=== PATIENT | female | born 1990 | race Hispanic/Latino ===

== ENCOUNTER 2020-12-30 03:06 | Emergency (ER) | payer MEDICAID ==
[2012-01-20 08:08] VITALS: BP 110/74
--- OUTSIDE RECORDS SUMMARY | 2020-12-30 03:10 | XMS REPORT | Continuity of Care Document ---
:1990 Author Organization [facility] t Address [address] [place] [address] Care Team Providers Name Role Phone Lilliam PEDRAZA M Primary Care Physician Lilliam PEDRAZA M Attending Clinician Payers Payer Name Policy Type Policy Effective Date Expiration Date Sour ce Number [facility] - [id number] 2019 Unive rsity of MANAGED 00:00:00 [place] [facility] [place]ICA[place] [facility] HEALTHCARE [id number]/ 08/2019-[address], [place] Problems Condition Condition Condition Status Onset Resolution Last Treating Co mments Source Name Details Category Date Date Treatment Clinician Date Low back Low back Disease Active Unive rs pain at pain at 7-02 ity of multiple multiple 00:00: [address] Allergies, Adverse Reactions, Alerts Allergy Allergy Status Severity Reaction(s) Onset Inactive Treating Comm ents Source Name Type Date Date Clinician No Known DA Active U 2018-08 [facility] Allergie 2-10 Clear s 00:00: [address] No Known DA Active U 2014-08 [facility] Allergie 0-06 Clear s 00:00: [place] [facility] Social History Social Habit Start Date Stop Date Quantity Comments Source Exposure to Not sure University of SARS-CoV-2 [facility] (event) Branch Tobacco use and 2020-12-11 2020-12-11 Never used Universit y of exposure 00:00:00 00:00:[address] [facility] Alcohol intake 2020-12-11 2020-12-11 Current drinker Unive rsity of 00:00:00 00:00:00 of alcohol [facility] (finding) Tat[place] Sex Assigned At [birth year] Universit y of 00:00:00 00:00:[address] [facility] Smoking Status Start Date Stop Date Source Former smoker 2020-12-11 00:00:00 2020-12-11 00:00:00 [facility] Medications Ordered Filled Start Stop Current Ordering Indication Dosage Frequency Signature Comments Components Source Medication Medication Date Date Medication? Clinician (SIG) Name Name SERTraline 2020- No 100mg Take 100 U nivers 100 mg 5-06 05-06 mg by ity of tablet 15:51: 00:00 mouth [place] 25 :00 daily. Medical Branch SERTraline 2020- No 100mg Take 100 U nivers 100 mg 5-06 05-06 mg by ity of tablet 15:51: 00:00 mouth [place] 25 :00 daily. [facility] Branch Immunizations Ordered Filled Immunization Date Status Comments [facility] e Immunization Name Name TDAP (ADACEL) 2019-09-25 Completed University of VACCINE 00:00:[address] [facility] TDAP (ADACEL) 2019-09-25 Completed University of VACCINE 00:00:[address] [facility] Vital Signs Vital Name Observation Time Observation Value Comments Source Systolic blood 2020-12-11 15:46:00 130 mm[Hg] Univer sity of pressure [facility] Diastolic blood 2020-12-11 15:46:00 87 mm[Hg] Unive rsity of pressure [facility] Heart rate 2020-12-11 15:46:00 77 /min [facility] Body temperature 2020-12-11 15:46:00 37.17 [facility] Respiratory rate 2020-12-11 15:46:00 18 /min [facility] Body height 2020-12-11 15:46:00 172.7 cm Universi ty of [facility] Body weight 2020-12-11 15:46:00 84.596 kg Universi ty [facility] BMI 2020-12-11 15:46:00 28.36 kg/m2 Universi ty [facility] Systolic blood 2020-12-11 15:46:00 130 mm[Hg] Univer sity of pressure [facility] Diastolic blood 2020-12-11 15:46:00 87 mm[Hg] Unive rsity of [facility] Heart rate 2020-12-11 15:46:00 77 /min Universi ty [facility] Body temperature 2020-12-11 15:46:00 37.17 [place]ta [facility] Respiratory rate 2020-12-11 15:46:00 18 /min [facility] Body height 2020-12-11 15:46:00 172.7 cm Universi ty [facility] Body weight 2020-12-11 15:46:00 84.596 kg Universi ty [facility] BMI 2020-12-11 15:46:00 28.36 kg/m2 [facility] Procedures This patient has no known procedures. Plan of Care Planned Activity Planned Date Details Comments Source Future Scheduled 2029-09-25 DTaP,Tdap,and Td Univers ity [facility] Test 00:00:00 Vaccines (2 - Td) Medical Br anch [code = DTaP,Tdap,and Td Vaccines (2 - Td)] Future Scheduled 2029-09-25 DTaP,Tdap,and Td Univers ity [facility] Test 00:00:00 Vaccines (2 - Td) Medical Br anch [code = DTaP,Tdap,and Td Vaccines (2 - Td)] Future Scheduled 2023-11-19 Screening for [facility] Test 00:00:00 malignant neoplasm Medical [facility] ranch of cervix (procedure) [code = [id number]] Future Scheduled 2023-11-19 Screening for [facility] Test 00:00:00 malignant neoplasm Medical B ranch of cervix (procedure) [code = [id number]] Future Scheduled 2021-12-11 Depression screening [facility] Test 00:00:00 (procedure) [code = Medical Branch [id number]] Future Scheduled 2021-12-11 Depression screening [facility] Test 00:00:00 (procedure) [code = Medical Branch [id number]] Future Scheduled 2021-04-08 INFLUENZA VACCINE [facility] Test 00:00:00 (Season Ended) [code Medical Branch = INFLUENZA VACCINE (Season Ended)] Future Scheduled 2021-04-08 INFLUENZA VACCINE [facility] Test 00:00:00 (Season Ended) [code Medical Branch = INFLUENZA VACCINE (Season Ended)] Future Scheduled 2007 Hepatitis C [facility] Test 00:00:00 screening Medical Branch (procedure) [code = [id number]] Future Scheduled 2007 Hepatitis C [facility] Test 00:00:00 screening Medical Branch (procedure) [code = [id number]] Future Scheduled 2005 SARS-CoV-2 [facility] Test 00:00:00 (COVID-19) Vaccine Medical B ranch (1) [code = SARS-CoV-2 (COVID-19) Vaccine (1)] Future Scheduled 2005 SARS-CoV-2 [facility] Test 00:00:00 (COVID-19) Vaccine Medical B ranch (1) [code = SARS-CoV-2 (COVID-19) Vaccine (1)] Encounters Start End Encounter Admission Attending Care Care Encounter Source Date/Time Date/Time Type Type Clinicians Facility Department ID 2020-12-11 2020-12-11 Office Lilliam Tavares [id number] 10:40:09 10:55:09 Visit [facility] [id number] M s and [id number] Adult [id number] Primary [facility] 2019-09-30 2019-09-30 Emergency E MHSE [id number] MH 00:53:00 00:53:00 [facility] Results Test Description Test Time Test Comments Results Result Comments Source RAPID PLASMA REAGIN 2019-12-07 11:45:00 Test Item Value Reference Range Interpretation Comme nts RAPID PLASMA REAGIN (test code = RPR) NONREACTIVE NONREACTIVE AG HEPATITIS B [id number] 11:45:00 Test Item Value Reference Range Interpretation Comments AG HEPATITIS B SURFACE NON REACTIVE INDEX NonReactive (test code = HBSAG) AB HIV 1 [id number] 11:45:00 Test Item Value Reference Range Interpretation Comments AB HIV 1 2 (test code = NONREACTIVE INDEX NONREACTIVE [id number]) HGB [id number] 07:43:00 Test Item Value Reference Range Interpretation Comments HEMOGLOBIN (test code = HGB) 9.6 g/dL 11.0-15.0 L HEMATOCRIT (test code = HCT) 30.5 % 33.0-45.0 L RAPID PLASMA [id number] 21:05:00 Test Item Value Reference Range Interpretation Comments RAPID PLASMA REAGIN (test code = RPR) NONREACTIVE AG HEPATITIS B [id number] 21:05:00 Test Item Value Reference Range Interpretation Comments AG HEPATITIS B SURFACE NON REACTIVE INDEX NonReactive (test code = HBSAG) AB HIV 1 21:05:00 Test Item Value Reference Range Interpretation Comments AB HIV 1 2 (test code = NONREACTIVE INDEX NONREACTIVE [id number]) DRUGS OF ABUSE SCREEN [id number] 18:47:00 Test Item Value Reference Range Interpretation Comments URN COCAINE (test code NEGATIVE NEGATIVE = COCAURN) URN CANNABINOIDS (test NEGATIVE NEGATIVE code = CANNABURN) URN AMPHETAMINE (test NEGATIVE NEGATIVE code = AMPHETURN) URN BARBITURATE (test NEGATIVE NEGATIVE code = BARBITURN) URN BENZODIAZEPINE NEGATIVE NEGATIVE Cut-off v alue:200 (test code = BENZOURN) ng/mL URN OPIATES (test code NEGATIVE NEGATIVE Cut-o ff value:2000 = OPIATURN) ng/mL URN PHENCYCLIDINE (PCP) NEGATIVE NEGATIVE Cuto ffs:Barbiturates (test code = PHENCURN) 200 ng/mLBenzodiaze pines 200 ng/ mLTHC Cannabinoids 50 ng/mLOpiates(Mo rphine) 2000 ng/mLAmphetamin e 1000 ng/mLCocaine 300 ng/ mLPCP phencyclidine 25 ng/mL Unconf irmed screening resul ts shouldnot be us ed for non-medical pur poses. CBC W/AUTO [id number] 18:28:00 Test Item Value Reference Range Interpretation Comments WHITE BLOOD CELL (test code = 10.56 x10 3/uL 4.5-11.0 N WBC) RED BLOOD CELL (test code = 3.83 x10 6/uL 3.54-5.02 N RBC) HEMOGLOBIN (test code = HGB) 11.3 g/dL 11.0-15.0 N HEMATOCRIT (test code = HCT) 35.5 % 33.0-45.0 N MEAN CELL VOLUME (test code = 92.7 fL 81.0-99.0 N MCV) MEAN CELL HGB (test code = 29.5 pg 27.0-33.0 N MCH) MEAN CELL HGB CONCETRATION 31.8 g/dL 33.0-37.0 L (test code = MCHC) RED CELL DISTRIBUTION WIDTH CV 12.6 % 11.5-14.5 N (test code = RDW) RED CELL DISTRIBUTION WIDTH SD 42.8 fL 37.0-54.0 N (test code = RDW-SD) PLATELET COUNT (test code = 265 x10 3/uL 150-400 N PLT) MEAN PLATELET VOLUME (test 11.0 fL 7.0-9.0 H code = MPV) NEUTROPHIL % (test code = NT%) 76.0 % 56.0-77.0 N IMMATURE GRANULOCYTE % (test 0.3 % 0.0-2.0 N code = IG%) LYMPHOCYTE % (test code = LY%) 16.7 % 14.0-32.0 N MONOCYTE % (test code = MO%) 6.4 % 4.8-9.0 N EOSINOPHIL % (test code = EO%) 0.3 % 0.3-3.7 N BASOPHIL % (test code = BA%) 0.3 % 0.0-2.0 N NUCLEATED RBC % (test code = 0.0 % 0-0 N NRBC%) NEUTROPHIL # (test code = NT#) 8.03 x10 3/uL 2.0-7.6 H IMMATURE GRANULOCYTE # (test 0.03 x10 3/uL 0.00-0.03 N code = IG#) LYMPHOCYTE # (test code = LY#) 1.76 x10 3/uL 1.0-3.8 N MONOCYTE # (test code = MO#) 0.68 x10 3/uL 0.1-0.8 N EOSINOPHIL # (test code = EO#) 0.03 x10 3/uL 0.0-0.2 N BASOPHIL # (test code = BA#) 0.03 x10 3/uL 0.0-0.2 N NUCLEATED RBC # (test code = 0.00 x10 3/uL 0.0-0.1 N NRBC#) MANUAL DIFF REQUIRED (test NO code = MDIFF) CHEMISTRY 8 [id number] 07:00:00 Test Item Value Reference Range Interpretation Comments ISTAT-SODIUM (test code = NAP) MMOL/L 134-147 ISTAT-POTASSIUM (test code = KP) MMOL/L 3.4-5.0 ISTAT-CHLORIDE (test code = CLP) MMOL/L 100-108 ISTAT CARBON DIOXIDE (test code = mmol/L 21-33 N ISTAT-CO2) ISTAT CALCIUM IONIZED (test code = MG/DL 1.12-1.32 ISTAT-REDDY) ISTAT-GLUCOSE (test code = GLUP) MG/DL 70-110 N ISTAT-BUN (test code = BUNP) MG/DL 7-18 L BEDSIDE CREATININE (test code = MG/DL 0.6-1.3 L CREATBED) GLOMERULAR FILTRATION RATE POC 336 ML/MIN (test code = GFRBED) CHEMISTRY 8 [id number] 07:00:00 Test Item Value Reference Range Interpretation Comments ISTAT-SODIUM (test 139 MMOL/L 134-147 N code = NAP) ISTAT-POTASSIUM (test 3.1 MMOL/L 3.4-5.0 L code = KP) ISTAT-CHLORIDE (test 106 MMOL/L 100-108 N Perform ed by code = CLP) certified opera tor at [facility] ISTAT CARBON DIOXIDE 23.0 mmol/L 21-33 N (test code = ISTAT-CO2) ISTAT CALCIUM IONIZED 1.23 MG/DL 1.12-1.32 N (test code = ISTAT-REDDY) ISTAT-GLUCOSE (test 97 MG/DL 70-110 N code = GLUP) ISTAT-BUN (test code = < 3 MG/DL 7-18 L BUNP) BEDSIDE CREATININE 0.3 MG/DL 0.6-1.3 L (test code = CREATBED) GLOMERULAR FILTRATION 336 ML/MIN RATE POC (test code = GFRBED) UA RFLX MICR CULT IF [id number] 21:37:00 Test Item Value Reference Range Interpretation Comments UA COLOR (test code = COLU) PEACH YEL/STRAW A UA APPEARANCE (test code = APPU) CLOUDY CLEAR A UA GLUCOSE DIPSTICK (test code = NEGATIVE NEGATIVE DGLUU) UA BILIRUBIN DIPSTICK (test code NEGATIVE NEGATIVE = BILU) UA KETONE DIPSTICK (test code = NEGATIVE NEGATIVE KETU) UA SPECIFIC GRAVITY (test code = 1.012 1.005-1.030 N SGU) UA BLOOD DIPSTICK (test code = 3+ NEGATIVE A WEN) UA PH DIPSTICK (test code = MICHAEL) 7.0 5.0-7.0 N UA PROTEIN DIPSTICK (test code = 1+ NEGATIVE A PROU) UA UROBILINIOGEN DIPSTICK (test 0.2 mg/dL 0.2-1.0 code = URO) UA NITRITE DIPSTICK (test code = NEGATIVE NEGATIVE KEM) UA LEUKOCYTE ESTERASE DIPSTICK 3+ NEGATIVE A (test code = LEUU) UA WBC (test code = WBCU) >50 WBC/HPF 0-3 A UA RBC (test code = RBCU) >50 RBC/HPF 0-3 A UA WBC NO REFLEX (test code = >50 WBC/HPF 0-3 A WBCUCL) UA BACTERIA (test code = BACU) TRACE /HPF NONE SEEN UA SQUAMOUS CELLS (test code = 0-5 /HPF NONE SEEN SQU) UA MUCUS (test code = MUCU) 1+ /LPF NONE SEEN Indication for culture: Suprapubic PainSpecimen Description: CLEAN CATCHCBC W/AUTO [id number] 21:30:00 Test Item Value Reference Range Interpretation Comments WHITE BLOOD CELL (test code = 9.11 x10 3/uL 4.5-11.0 N WBC) RED BLOOD CELL (test code = 3.46 x10 6/uL 3.54-5.02 L RBC) HEMOGLOBIN (test code = HGB) 11.2 g/dL 11.0-15.0 N HEMATOCRIT (test code = HCT) 34.1 % 33.0-45.0 N MEAN CELL VOLUME (test code = 98.6 fL 81.0-99.0 N MCV) MEAN CELL HGB (test code = MCH) 32.4 pg 27.0-33.0 N MEAN CELL HGB CONCETRATION 32.8 g/dL 33.0-37.0 L (test code = MCHC) RED CELL DISTRIBUTION WIDTH CV 12.9 % 11.5-14.5 N (test code = RDW) RED CELL DISTRIBUTION WIDTH SD 46.1 fL 37.0-54.0 N (test code = RDW-SD) PLATELET COUNT (test code = 256 x10 3/uL 150-400 N PLT) MEAN PLATELET VOLUME (test code 10.3 fL 7.0-9.0 H = MPV) NEUTROPHIL % (test code = NT%) 68.9 % 56.0-77.0 N IMMATURE GRANULOCYTE % (test 0.3 % 0.0-2.0 N code = IG%) LYMPHOCYTE % (test code = LY%) 22.2 % 14.0-32.0 N MONOCYTE % (test code = MO%) 6.6 % 4.8-9.0 N EOSINOPHIL % (test code = EO%) 1.8 % 0.3-3.7 N BASOPHIL % (test code = BA%) 0.2 % 0.0-2.0 N NUCLEATED RBC % (test code = 0.0 % 0-0 N NRBC%) NEUTROPHIL # (test code = NT#) 6.28 x10 3/uL 2.0-7.6 N IMMATURE GRANULOCYTE # (test 0.03 x10 3/uL 0.00-0.03 N code = IG#) LYMPHOCYTE # (test code = LY#) 2.02 x10 3/uL 1.0-3.8 N MONOCYTE # (test code = MO#) 0.60 x10 3/uL 0.1-0.8 N EOSINOPHIL # (test code = EO#) 0.16 x10 3/uL 0.0-0.2 N BASOPHIL # (test code = BA#) 0.02 x10 3/uL 0.0-0.2 N NUCLEATED RBC # (test code = 0.00 x10 3/uL 0.0-0.1 N NRBC#) MANUAL DIFF REQUIRED (test code NO = MDIFF) [facility] [id number] 21:19:00 Test Item Value Reference Range Interpretation Comments [facility] POC (test code > 2000.0 <5.0 H Performed by certified = HCGPOC) boiling tub operator at [facility]< 5 IU/L Negative5.0 -25 .0 IU/L Indeterminate>2 5.0 IU/L Positive Detect ion of low levels of hCG d oes not rule out .B ecause hCG values double a pproximately every 48 hours in anormal , maria eugenia ents with low levels of h CG should beresampled and retested after 48 hours. - DUP AB/PEL/SC/[id number] 17:57:00 Name: ANISA GUERRA [facility] [place] : 1990 Age/S: 29 / F [address] [place] [address] Unit #: [id number] Loc: [facility] [id number] Phys: Jonathan Sandhu DO Acct: [id number] Dis Date: Status: REG ER PHONE #: [phone] Exam Date: 07/17/2019 174 FAX #: [phone] Reason: PELVIC PAIN EXAMS: CPTCODE: [id number] DUP AB/PEL/SC/LTD [id number] Limited ultrasound. INDICATION: 19 weeks 6 days with acute pelvic pain today. Vaginal bleeding. COMPARISON: None. FINDINGS: Limited transabdominal ultrasound was performed and 23 select images were obtained and presented for interpretation at this time. A single live intrauterine is identified currently in cephalic position with heart tones of 141- 144 bpm. Posterior placenta identified. Average biparietal diameter of 4.69 cm correlates with 20 weeks 1 day gestational age. Both ovaries appear normal with the right measuring 3 x 1.9 x 2.5 cm and the left measuring 3.4 x 1.8x 3.9 cm. Expected low-resistance arterial waveforms are documented to each ovary. No adnexal mass or free fluid seen on these images. IMPRESSION: 1. Single viable intrauterine . 2. Normal maternal ovaries. SL: MEHRDAD at 1750 Reported and signed by: Ole Villar M.D. CC: Jonathan Sandhu DO; Mervin Atkins MD Technologist: Anisa George RDMS([place])(RCT) Trnscb Date/Time: 07/17/2019 (8553) [email or web address] Orig Print D/T: S: 07/17/2019 (1800) Probe: PAGE 1 Signed Report- US [id number] 17:57:00 [facility] [place] [facility] 1990 Age/S: 29 / F [address] [place] [address] Unit #: [id number] Loc: Beto [id number] Phys: Jonathan Sandhu DO Acct: [id number] Dis Date: Status: REG ER PHONE #: [phone] Exam Date: 07/17/2019 174 FAX #: [phone] Reason: Pelvic Pain EXAMS: CPTCODE: [id number] [place] LTD 52406 Limited ultrasound. INDICATION: 19 weeks 6 days with acute pelvic pain today. Vaginal bleeding. COMPARISON: None. FINDINGS: Limited transabdominal ultrasound was performed and 23 select images were obtained and presented for interp retation at this time. A single live intrauterine is identified currently in cephalic position with heart tones of 141-144 bpm. Posterior placenta identified. Average biparietal diameter of 4.69 cm correlates with 20 weeks 1 day gestational age. Both ovariesappear normal with the right measuring 3 x 1.9 x 2.5 cm and the left measuring 3.4 x 1.8 x 3.9 cm. Expected low-resistance arterial waveforms are documented to each ovary. No adnexal mass or free fluid seen on these images. IMPRESSION: 1. Single viable intrauterine . 2. Normal maternal ovaries. SL: SG-H at 1757 Reported and signed by: Ole Villar M.D. CC: Jonathan Sandhu DO; Mervin Atkins MD Technologist: Anisa George RDMS([place])(RCT) Trnscb Date/Time: 07/17/2019 (175) [email or web address] Orig Print D/T: S: 07/17/2019 (1800) Probe: PAGE 1 Signed Report
--- NOTE | 2020-12-30 03:39 | ER ---
Nurse's Notes [facility] Name: Anisa Alcocer Age: 30 yrs Sex: Female : 1990 Arrival Date: 12/30/2020 Time: 03:09 Bed 17 Private MD: Diagnosis: Chronic pharyngitis ED Course: 12/30 03:09 Patient arrived in ED. 3 03:18 Swapnil Stinson MD is Attending Physician. tw4 Administered Medications: No medications were administered Outcome: 03:37 Medical screen evaluation completed per provider. Patient declined treatment. jm8 03:37 Condition: good 03:37 Following a medical screening exam, the patient was provided information regarding alternative care sites and resources available per registration personnel. 03:39 Discharge ordered by . tw4 03:40 Patient left the ED. jm8 Signatures: Swapnil Stinson MD MD tw4 Kim Mckee 3 Raj Pang RN RN jm8
--- NOTE | 2020-12-30 03:39 | EDPHYS ---
Physician Documentation [facility] Name: Anisa Alcocer Age: 30 yrs Sex: Female : 1990 Arrival Date: 12/30/2020 Time: 03:09 Bed 17 Private MD: ED Physician Swapnil Stinson HPI: 12/30 04:18 This 30 yrs old Female presents to ER via Unassigned with complaints of Sore tw4 Throat. 04:18 The patient presents with sore throat. The patient describes throat pain as dry. tw4 Severity of symptoms: At their worst the symptoms were moderate, in the emergency department the symptoms are unchanged. The patient has not experienced similar symptoms in the past. 04:19 Onset: The symptoms/episode began/occurred 2 week(s) ago. Modifying factors: The tw4 symptoms are alleviated by. The patient has not recently seen a physician. ROS: 04:18 Constitutional: Negative for fever, chills, and weight loss, Eyes: Negative for injury, tw4 pain, redness, and discharge. 04:18 ENT: Positive for 04:19 Cardiovascular: Negative for chest pain, palpitations, and edema, Respiratory: Negative tw4 for shortness of breath, cough, wheezing, and pleuritic chest pain, Abdomen/GI: Negative for abdominal pain, nausea, vomiting, diarrhea, and constipation, Back: Negative for injury and pain, MS/Extremity: Negative for injury and deformity, Skin: Negative for injury, rash, and discoloration, Neuro: Negative for headache, weakness, numbness, tingling, and seizure. 04:19 ENT: Positive for sore throat. Exam: 04:19 Constitutional: This is a well developed, well nourished patient who is awake, alert, tw4 and in no acute distress. Head/Face: Normocephalic, atraumatic. Chest/axilla: Normal chest wall appearance and motion. Nontender with no deformity. No lesions are appreciated. Cardiovascular: Regular rate and rhythm with a normal S1 and S2. No gallops, murmurs, or rubs. Normal PMI, no JVD. No pulse deficits. Respiratory: Lungs have equal breath sounds bilaterally, clear to auscultation and percussion. No rales, rhonchi or wheezes noted. No increased work of breathing, no retractions or nasal flaring. Abdomen/GI: Soft, non-tender, with normal bowel sounds. No distension or tympany. No guarding or rebound. No evidence of tenderness throughout. Back: No spinal tenderness. No costovertebral tenderness. Full range of motion. Skin: Warm, dry with normal turgor. Normal color with no rashes, no lesions, and no evidence of cellulitis. MS/ Extremity: Pulses equal, no cyanosis. Neurovascular intact. Full, normal range of motion. Neuro: Awake and alert, GCS 15, oriented to person, place, time, and situation. Cranial nerves II-XII grossly intact. Motor strength 5/5 in all extremities. Sensory grossly intact. Cerebellar exam normal. Normal gait. MDM: 03:29 Patient medically screened. tw4 03:38 Data reviewed: vital signs, nurses notes. Medical screen evaluation completed. [facility] emergency medical condition absent. 04:19 Data interpreted: Pulse oximetry: Interpretation: normal. Counseling: I had a detailed 4 discussion with the patient and/or guardian regarding: the historical points, exam findings, and any diagnostic results supporting the discharge/admit diagnosis. Special discussion: I discussed with the patient/guardian in detail that at this point there is no indication for admission to the hospital. It is understood, however, that if the symptoms persist or worsen the patient needs to return immediately for re-evaluation. Administered Medications: No medications were administered Disposition: 12/30/20 03:39 Discharged to Home. Impression: Chronic pharyngitis. - Condition is Stable. - Medication Reconciliation Form, Thank You Letter, Antibiotic Education, Prescription Opioid Use form. - Follow up: Private Physician; When: Upon discharge from the Emergency Department; Reason: Recheck today's complaints, Continuance of care, Re-evaluation by your physician. - Problem is an ongoing problem. - Symptoms are unchanged. Signatures: Swapnil Stinson MD MD tw4 Raj Pang RN RN jm8 Corrections: (The following items were deleted from the chart) 03:40 03:39 12/30/2020 03:39 Discharged to Home. Impression: Chronic pharyngitis. Condition jm8 is Stable. Forms are Medication Reconciliation Form, Thank You Letter, Antibiotic Education, Prescription Opioid Use. Follow up: Private Physician; When: Upon discharge from the Emergency Department; Reason: Recheck today's complaints, Continuance of care, Re-evaluation by your physician. Problem is an ongoing problem. Symptoms are unchanged. 4 04:22 04:18 Onset: The symptoms/episode began/occurred today, tw4 tw4
== END 2020-12-30 03:40 | disposition home or self-care (01) ==
LOC: ER 03:06
DX: J31.2 Chronic pharyngitis (principal)